=== PATIENT | male | born 1950 | race Caucasian/White ===

== ENCOUNTER → 2023-09-18 05:56 | Outpatient (REF) | payer MEDICARE, OTHER, SELFPAY ==
[2023-09-18 10:25] LABS: % Basophils 1.1 % (0-2); % Eosinophils 7.3 % (0-6); % Lymphocytes 31.3 % (20.5-51.1); % Monocytes 12.6 % (1.7-9.3); % Neutrophils 47.7 % (42.2-75.2); Absolute Basophils 0.1 10^3/uL (0-0.2); Absolute Eosinophils 0.3 10^3/uL (0-0.7); Absolute Lymphocytes 1.5 10^3/uL (1.2-3.4); Absolute Monocytes 0.6 10^3/uL (0.1-0.6); Absolute Neutrophils 2.2 10^3/uL (1.4-6.5); Hematocrit 47.8 % (39.0-52.0); Mean Corp Hgb Conc. 33.5 g/dL (33.0-37.0); Mean Corpuscular Volume 89.5 fL (80.0-94.0); Mean Platelet Volume 11.1 fL (7.4-10.4); Nucleated Red Blood Cells % 0 % (-); Platelet Count 205 10^3/uL (130-400); Red Blood Cell Count 5.34 10^6/uL (4.70-6.10); Red Cell Dist. Width 12.8 % (11.5-14.5); White Blood Cell Count 4.7 10^3/uL (4.8-10.8)
[2023-09-18 10:52] LABS: ALT (SGPT) 40 U/L (0-50); AST (SGOT) 41 U/L (17-59); Albumin 4.2 g/dl (3.5-5.0); Alkaline Phosphatase 52 U/L (38-126); Blood Urea Nitrogen 21 mg/dl (9-20); Calcium 9.9 mg/dl (8.4-10.2); Carbon Dioxide 27 mmol/L (22-30); Chloride 103 mmol/L (98-107); Glucose 105 mg/dl (70-99); HDL Cholesterol 37 mg/dl; LDL Cholesterol, Calculated 71 mg/dl; Potassium 4.6 mmol/L (3.5-5.1); Sodium 138 mmol/L (135-145); Total Bilirubin 0.7 mg/dl (0.2-1.3); Total Cholesterol 146 mg/dl (50-199); Total Protein 7.2 g/dl (6.3-8.2); Triglyceride 192 mg/dl (10-149); Very Low Density Lipoprotein 38 mg/dl (0-30); eGFR > 60.00
[2023-09-18 11:11] LABS: PSA, Total - Screen 0.26 ng/ml (0.0-4.0); TSH 5.31 uIU/ml (0.47-4.68)
[2023-09-18 12:20] LABS: Glycohemoglobin (HgbA1c) 5.7 % (4.0-5.6)
[2023-09-19 20:56] LABS: % Free Testosterone 1.6 % (1.6-2.9); Free Testosterone 79 pg/mL (47-244); Sex Hormone Binding Globulin 46 nmol/L (19-76); Total Testosterone 507 ng/dL (300-720)
== END ==
LOC: HWLAB 05:56
PROVIDERS: ATTENDING PHYSICIAN Family Medicine; REFERRING PHYSICIAN Nuclear Medicine Nuclear Cardiology
DX: E29.1 Testicular hypofunction (principal); R73.01 Impaired fasting glucose; I10 Essential (primary) hypertension; E78.2 Mixed hyperlipidemia; Z12.5 Encounter for screening for malignant neoplasm of prostate
CPT/HCPCS: 36415; 80053; 80061; 83036; 84270; 84402; 84403; 84443; 85025; G0103

== ENCOUNTER → 2024-01-21 13:46 | Outpatient (REF) | payer MEDICARE, OTHER, SELFPAY | LOC: HWRCS 13:46 | PROVIDERS: ATTENDING PHYSICIAN Nuclear Medicine Nuclear Cardiology; FAMILY PHYSICIAN Family Medicine | DX: I25.10 Atherosclerotic heart disease of native coronary artery without angina pectoris (principal); I35.1 Nonrheumatic aortic (valve) insufficiency; I25.3 Aneurysm of heart | CPT/HCPCS: 93306 ==

== ENCOUNTER → 2024-05-27 07:41 | Outpatient (REF) | payer MEDICARE, OTHER, SELFPAY | LOC: HWRAD 07:41 | PROVIDERS: ATTENDING PHYSICIAN Family Medicine | DX: R33.9 Retention of urine, unspecified (principal) | CPT/HCPCS: 76857 ==

== ENCOUNTER → 2024-08-18 06:30 | Outpatient (REF) | payer MEDICARE, OTHER, SELFPAY ==
[2024-08-18 09:56] LABS: % Basophils 0.6 % (0-2); % Eosinophils 4.1 % (0-6); % Immature Granulocytes 0.2 % (0-0.5); % Lymphocytes 19.8 % (20.5-51.1); % Neutrophils 64.3 % (42.2-75.2); Absolute Eosinophils 0.2 10^3/uL (0-0.7); Absolute Lymphocytes 1.1 10^3/uL (1.2-3.4); Absolute Monocytes 0.6 10^3/uL (0.1-0.6); Absolute Neutrophils 3.4 10^3/uL (1.4-6.5); Hemoglobin 15.2 g/dL (13.0-18.0); Mean Corpuscular Volume 90.7 fL (80.0-94.0); Mean Platelet Volume 10.9 fL (7.4-10.4); Nucleated Red Blood Cells % 0 % (-); Platelet Count 185 10^3/uL (130-400); Red Blood Cell Count 5.07 10^6/uL (4.70-6.10); Red Cell Dist. Width 12.9 % (11.5-14.5); White Blood Cell Count 5.4 10^3/uL (4.8-10.8)
[2024-08-18 10:27] LABS: ALT (SGPT) 40 U/L (0-50); AST (SGOT) 38 U/L (17-59); Alkaline Phosphatase 59 U/L (38-126); Blood Urea Nitrogen 17 mg/dl (9-20); Calcium 9.6 mg/dl (8.4-10.2); Carbon Dioxide 31 mmol/L (22-30); Chloride 104 mmol/L (98-107); Glucose 101 mg/dl (70-99); HDL Cholesterol 47 mg/dl; LDL Cholesterol, Calculated 69 mg/dl; Potassium 4.3 mmol/L (3.5-5.1); Sodium 141 mmol/L (135-145); Total Bilirubin 0.4 mg/dl (0.2-1.3); Total Cholesterol 133 mg/dl (50-199); Total Protein 6.4 g/dl (6.3-8.2); Triglyceride 88 mg/dl (10-149); Very Low Density Lipoprotein 17 mg/dl (0-30); eGFR > 60.00
[2024-08-18 10:29] LABS: Vitamin D, 25-OH*** 43.1 ng/mL (30-80)
[2024-08-18 10:43] LABS: PSA, Total - Screen 0.33 ng/ml (0.0-4.0); TSH 4.81 uIU/ml (0.47-4.68)
[2024-08-18 11:57] LABS: Albumin 3.7 g/dl (3.5-5.0)
[2024-08-18 12:30] LABS: Glycohemoglobin (HgbA1c) 5.6 % (4.0-5.6)
== END ==
LOC: HWLAB 06:30
PROVIDERS: ATTENDING PHYSICIAN Family Medicine
DX: E55.9 Vitamin D deficiency, unspecified (principal); E03.8 Other specified hypothyroidism; E78.2 Mixed hyperlipidemia; R73.01 Impaired fasting glucose; R35.1 Nocturia; Z12.5 Encounter for screening for malignant neoplasm of prostate
CPT/HCPCS: 36415; 80053; 80061; 82306; 83036; 84443; 85025; G0103

== ENCOUNTER → 2024-10-06 11:47 | Outpatient (REF) | payer MEDICARE, OTHER, SELFPAY | LOC: RAD 11:47 | PROVIDERS: ATTENDING PHYSICIAN Nuclear Medicine Nuclear Cardiology; FAMILY PHYSICIAN Family Medicine | DX: I10 Essential (primary) hypertension (principal); I63.9 Cerebral infarction, unspecified; I25.10 Atherosclerotic heart disease of native coronary artery without angina pectoris; I35.1 Nonrheumatic aortic (valve) insufficiency; I25.3 Aneurysm of heart | CPT/HCPCS: 71275; Q9967 ==